=== PATIENT | female | born 1975 | race Caucasian/White ===

== ENCOUNTER 2023-08-27 11:59 | Emergency (ER) | payer OTHER, SELFPAY ==
--- NOTE | ~2023-08-27 | XR_ITS ---
EXAMINATION: XR chest 2V DATE: 08/27/2023 12:23 INDICATION: Cough TECHNIQUE: PA and lateral views of the chest are obtained. COMPARISON: None available FINDINGS: The lungs are free of acute opacities. No pleural effusion or pneumothorax. The cardiomedia stinal silhouette is normal. There is moderate thoracic spondylosis. IMPRESSION: 1. No acute cardiopulmonary abnormality. Reviewed, dictated and finalized at location [facility]
[2023-08-27 12:09] VITALS: BP 143/73; PULSE 72; RESP 18; TEMP 36.5; O2SAT 97
[2023-08-27 12:14] VITALS: RESP 22
--- NOTE | 2023-08-27 12:39 | ED.GENADULT ---
HPI - General Adult General Chief complaint: Unspecified Stated complaint: LUNG PAIN Time Seen by Provider: 08/27/23 12:39 Source: patient Mode of arrival: ambulatory Limitations: no limitations History of Present Illness HPI narrative: 47 yo F presents with concern for aspiration pneumonia. Reports hx of GERD. Takes OTC antacids. has been waking up with reflux and puking. is suppose to see a GI specialist with [facility] but hasn't gotten appt yet. Two nights ago woke up coughing and vomiting from reflux and states that she aspirated. Since then has been coughing, sore throat, lots of mucous, bodyaches and fatigue. Pt has nasal congestion today but reports always congested, uses afrin. Called PCP because concerned for aspiration pneumonia and was told to get chest x-ray at . no respiratory distress noted. all systems reviewed and negative except as noted above. Related Data Home Medications Medication Instructions Recorded Confirmed almotriptan malate 6.25 mg tablet mg 08/27/23 amitriptyline 25 mg tablet mg 08/27/23 buprenorphine 8 mg-naloxone 2 mg film 08/27/23 sublingual film cetirizine 10 mg tablet mg 08/27/23 clonazepam 1 mg tablet mg 08/27/23 diphenhydramine HCl 25 mg capsule mg 08/27/23 (Banophen) erenumab-aooe 70 mg/mL mg subcut 08/27/23 subcutaneous auto-injector (Aimovig Autoinjector) gabapentin 100 mg capsule mg 08/27/23 pantoprazole 40 mg tablet,delayed mg PO 08/27/23 release propranolol 10 mg tablet mg 08/27/23 topiramate 50 mg tablet mg 08/27/23 trazodone 50 mg tablet mg 08/27/23 Allergies Allergy/AdvReac Type Severity Reaction Status Date / Time No Known Allergies Allergy Verified 08/27/23 12:13 Review of Systems Review of Systems: CONSTITUTIONAL: Denies fever, chills, or sweats. reports fatigue. EYES: Denies visual changes, redness, or discharge. ENT: Reportsrhinorrhea, congestion, sore throat. otalgia. CARDIOVASCULAR: Denies chest pain, palpitations, or edema. RESPIRATORY: Reports cough. Deniesdyspnea. GASTROINTESTINAL: Denies abdominal pain, nausea, vomiting, or diarrhea. GENITOURINARY: Denies dysuria or hematuria. SKIN: Denies rash or itching. MUSCULOSKELETAL: Denies back pain, joint pain . Reports myalgia. NEUROLOGIC: Denies headache, numbness, or weakness. PSYCHIATRIC: Denies anxiety or depression. All other systems reviewed are negative, except as documented in HPI. PMFSH Comments At time of signature, agree with nursing past medical, surgical, social and family history. There is no relevant family history pertinent to the presenting complaint. Exam Narrative: GENERAL: This is a well-nourished, well-developed patient, in no apparent distress. HEAD: normocephalic, atraumatic. EYES: PERRL. Sclera clear/white. Vision is grossly intact. EARS: External ears normal, auditory canals clear and without drainage, TMs normal without perforation. Hearing grossly intact. NOSE: External nose normal with moderate nasal congestion, clear nasal drainage THROAT: Mucous membranes moist, erythema with postnasal drainage NECK: Neck supple, non-tender without lymphadenopathy, masses or thyromegaly. CARDIOVASCULAR: Regular rate and rhythm without murmurs, gallops, or rubs. RESPIRATORY: Clear to auscultation. Breath sounds equal bilaterally. No wheezes, rales, or rhonchi. SKIN: warm, Dry, intact with no suspicious lesions or rash, good texture and turgor. NEURO: awake, alert, and oriented to person, place and time. There were no obvious focal neurologic abnormalities. EXTREMITIES: No joint tenderness, effusion, or edema noted. Course Course Level of Care: Express Care Visit Vital Signs Vital signs: Vital Signs Temperature 36.5 C 08/27/23 12:09 Pulse Rate 72 08/27/23 12:09 Respiratory Rate 18 08/27/23 12:09 Blood Pressure 143/73 H 08/27/23 12:09 Pulse Oximetry 97 08/27/23 12:09 Oxygen Delivery Room Air 08/27/23 12:09 Temperature 36
== END 2023-08-27 13:21 | disposition home or self-care (01) ==
PROVIDERS: Emergency Provider Nurse Practitioner Family; PCP Hospitalist
DX: U07.1 COVID-19 (principal); K21.9 Gastro-esophageal reflux disease without esophagitis
CPT/HCPCS: 71046; 87426; 87804; 99203; G0463